=== PATIENT | female | born 1990 | race Asian ===

== ENCOUNTER 2024-05-02 17:42 | Inpatient (IN) ==
[2024-05-02] MEDS: KETOROLAC TROMETHAMINE 15 MG/ML VIAL IV ONE (18:42)
[2024-05-02] MEDS: SODIUM CHLORIDE 0.9% 1,000 ML IV ONE ×2 (18:43→21:47)
[2024-05-02 19:00] LABS: Hematocrit (blood only) 30.9 % (37.0-47.0); Hemoglobin 10.4 g/dl (12.0-16.0); Immature Granulocytes % (auto) 0.8 %; Lymphocytes % (auto) 9.3 %; Mean Corpuscular Hemoglobin 28.1 pg (25.0-34.0); Mean Corpuscular Hgb Conc 33.7 g/dL (32.0-36.0); Mean Corpuscular Volume 83.5 fL (80.0-100.0); Mean Platelet Volume 11.5 fL (9.4-12.4); Monocytes # (auto) 0.52 K/uL (0.11-0.59); Monocytes % (auto) 4.4 %; Neutrophils # (auto) 10.06 K/uL (1.40-6.50); Neutrophils % (auto) 85.5 %; Platelet Count 154 K/uL (130-400); RDW Coefficient of Variation 13.5 % (11.5-14.5); RDW Standard Deviation 41.1 fL (36.4-46.3); White Blood Count 11.78 K/ul (4.8-10.8)
--- NOTE | 2024-05-02 19:02 | Emergency Department Note ---
Impression & Plan Sepsis, Acute UTI (urinary tract infection), Leukocytosis, Elevated serum creatinine, Elevated procalcitonin, Non-ST elevation [facility] (NSTEMI) ED Provider Note HISTORY OF PRESENT ILLNESS: Patient is a 34-year-old female presenting with fevers. Patient reports she has had a fever from 103-105F for the last 3 days. States that she has had diffuse bodyaches. Reports that today she has been laid up in bed secondary to her body aches and fatigue. Reports that earlier today "my head felt heavy." States she was finally able to get up and eat something today in the late afternoon but is still been feeling generally unwell. States she has had a loss of appetite in the last 3 days. Denies any recent sick contact exposures. Denies any recent travel. Denies any DVT or PE history. Denies any chest pain or shortness of breath. She denies any current headache or changes in vision. Denies any rashes. Up-to-date on all vaccines. Denies any dysuria or hematuria. ROS: as above PHYSICAL EXAM: Constitutional: Patient appears in no acute distress. HENT: Head: Normocephalic and atraumatic. Eyes: EOMI, PERRL Mouth/Throat: Mucous membranes moist. Neck: Trachea midline. Neck supple. Cardiovascular: Tachycardic with regular rhythm. No murmurs, rubs or gallops. Intact distal pulses. Pulmonary/Chest: No respiratory distress. Breath sounds clear and equal bilaterally. No wheezes or rales. Abdominal: Abdomen soft, no tenderness, rebound or guarding. Musculoskeletal: No edema, tenderness or deformity noted. Skin: Warm and dry. No rash, erythema, pallor or cyanosis Psychiatric: Appropriate mood and affect for situation. Neurological: Alert and keenly responsive. CN II-XII grossly intact, moving all extremities equally and fully. MDM: - Vitals signs showed tachycardia and fever - History obtained via patient. History as above. - Chronic conditions affecting care: none - Differential diagnoses include, but are not limited to: UTI; pneumonia; viral syndrome; Lyme disease; dehydration; bacteremia - Order placed for continuous cardiac monitoring. At this time, monitor showed rate of 80 bpm with normal sinus rhythm, per my interpretation. - External medical records reviewed. Allergy visit note dated 09/20/2022 was reviewed. Patient was seen in their clinic for persistent hives. - EKG interpreted by myself showed normal sinus rhythm. Rate 100 bpm. QT 330. No acute ischemic changes. - Laboratory workup interpreted by myself showed leukocytosis (WBC 11.78) with neutrophilic predominance; hyponatremia (Na 134); elevated creatinine (Cr 1.4 - unknown baseline); elevated procalcitonin (3.00); elevated troponin (29.2) - Repeat troponin WNL - Negative monospot. Negative lyme - Viral respiratory panel negative - CXR negative for pneumonia, per my interpretation - Blood culture obtained - UA showed evidence of infection. Given 2g IV rocephin - Patient became transiently hypotensive in ER. Her blood pressure did improve after fluid resuscitation. Based on patient's fever, elevated heart rate, tachypnea and source of infection of her UTI, she meets sepsis criteria. - NSTEMI likely type II in etiology given patient's sepsis and infection. - Given 2L NS in ER. Patient sepsis fluid volume resuscitation based on ideal body weight is 1772.70 mL. - Discussion was had with piano case and bench assembler about patient's case and need for admission - Hospitalist, Dr. Valenzuela, consulted for admission. Requested CT abdomen/pelvis be obtained, to rule out potential pyelonephritis or ureteral stone. - [facility]. I have personally spent 36 minutes of critical care time in the direct management of this patient. This includes bedside care, interpretation of diagnostic studies, and testing, discussion with consultants, patient, and family members, and other required patient management activities. This 36 minutes is in excess of all separately billable procedures. ASSESSMENT AND PLAN: Diagnosis: Sepsis; acute UTI; leukocytosis; elevated serum creatinine; elevated procalcitonin; NSTEMI Plan: admit Past Med/Surg History Problem List (Updated 05/02/24 @ 22:36 by Alivia Head MD) Non-ST elevation [facility] (NSTEMI) (Acute) Elevated procalcitonin (Acute) Elevated serum creatinine (Acute) Leukocytosis (Acute) Acute UTI (urinary tract infection) (Acute) Sepsis (Acute) Angio-edema Urticaria Medical History History of ectopic Mild anemia Surgical History History of gynecologic surgery Social History Smoking Status: Never smoker Preferred Language: Cymraes marital status: Single current occupational status: student Feels Safe at Home: Yes Allergies Allergies Allergy/AdvReac Type Severity Reaction Status Date / Time No Known Drug Allergies Allergy Verified 09/20/22 13:25 Home Meds Home Medications Medication Instructions Recorded Confirmed acetaminophen 500 mg tablet 1,000 mg PO Q6H PRN temp 05/02/24 05/02/24 (Tylenol Extra Strength) Results & Data (ED) Vital Signs Vital Signs - 24 hr 05/02/24 18:02 05/02/24 18:28 05/02/24 19:35 Temperature 39.1 C H 38.4 C H 36.7 C Temperature Source Oral Oral Oral Pulse Rate 116 H Pulse Rate [Finger] 105 H Respiratory Rate 18 22 Respiratory Effort / Characteristics Non-Labored Spontaneous Respiratory Depth Normal Blood Pressure 105/73 Blood Pressure [Left Arm] 112/69 Blood Pressure Mean 83 Blood Pressure Mean [Left Arm] 83 Blood Pressure Position [Left Arm] Pulse Oximetry 98 97 Oxygen Delivery Method Room Air Room Air Sepsis Recent Fever Within 48 Hours Yes Sepsis New/Unexplained Change in Mental Status No Sepsis Action Taken by Nursing No Action Required 05/02/24 20:28 05/02/24 21:22 Temperature 36.8 C Temperature Source Oral Pulse Rate Pulse Rate [Finger] 82 80 Respiratory Rate 16 16 Respiratory Effort / Characteristics Respiratory Depth Blood Pressure Blood Pressure [Left Arm] 85/57 L 97/43 L Blood Pressure Mean Blood Pressure Mean [Left Arm] 66 61 Blood Pressure Position [Left Arm] Sitting Sitting Pulse Oximetry 99 99 Oxygen Delivery Method Room Air Sepsis Recent Fever Within 48 Hours Sepsis New/Unexplained Change in Mental Status Sepsis Action Taken by Nursing Laboratory Data 05/02/24 18:11 05/02/24 19:43 Lab Results 05/02/24 05/02/24 05/02/24 Range/Units 18:08 18:11 19:43 WBC 11.78 H (4.8-10.8) K/ul RBC 3.70 L (4.20-5.40) M/uL Hgb 10.4 L (12.0-16.0) g/dl Hct 30.9 L (37.0-47.0) % MCV 83.5 (80.0-100.0) fL MCH 28.1 (25.0-34.0) pg MCHC 33.7 (32.0-36.0) g/dL RDW Std Deviation 41.1 (36.4-46.3) fL RDW Coeff of Derek 13.5 (11.5-14.5) % Plt Count 154 (130-400) K/uL MPV 11.5 (9.4-12.4) fL Immature Gran % (Auto) 0.8 % Neut % (Auto) 85.5 % Lymph % (Auto) 9.3 % Wilkin % (Auto) 4.4 % Eos % (Auto) 0.0 % Baso % (Auto) 0.0 % Neut # (Auto) 10.06 H (1.40-6.50) K/uL Lymph # (Auto) 1.10 L (1.20-3.40) K/uL Wilkin # (Auto) 0.52 (0.11-0.59) K/uL Eos # (Auto) 0.00 (0.00-0.50) K/uL Baso # (Auto) 0.00 (0.00-0.20) K/uL Immature Gran # (Auto) 0.10 (0.01-0.20) K/uL Sodium TNP 134 L Potassium TNP 3.5 Chloride 102 (98-107) mmol/L Carbon Dioxide 20 L (21-32) mmol/L Anion Gap TNP BUN 19 (6-23) mg/dl Creatinine 1.41 H (0.6-1.2) mg/dl Est Cr Clr Drug Dosing 59.2 ml/min Est GFR ( Amer) 57.0 ml/min Est GFR (Non-Af Amer) 49.2 ml/min BUN/Creatinine Ratio 13.5 (10-20) Glucose 188 H (70-99(Fasting)) mg/dl Calcium 7.9 L (8.6-10.3) mg/dl Magnesium TNP 1.7 Total Bilirubin 0.8 (0.2-1.0) mg/dl AST TNP 15 ALT 26 (7-52) U/L Alkaline Phosphatase TNP 82 Troponin I High Sens 29.2 H (0-14) pg/ml Total Protein 7.0 (6.0-8.3) gm/dl Albumin TNP 2.9 L Globulin TNP Albumin/Globulin Ratio TNP Procalcitonin 3.00 H (0-0.5) ng/ml HCG, Qual Negative (Negative) Urine Color Urine Appearance (Clear) Urine pH (4.5-7.5) Ur Specific [place] (1.000-1.030) Urine Protein (Negative) Urine Glucose (UA) (Negative) Urine Ketones (Negative) Urine Blood (Negative) Urine Nitrite (Negative) Urine Bilirubin (Negative) Urine Urobilinogen (Negative) Ur Leukocyte Esterase (Negative) Urine WBC (Auto) (0-5) /hpf Urine RBC (Auto) (0-2) /hpf U Hyaline Cast (Auto) (0-2) /lpf U Epithel Cells (Auto) (0-2) /hpf Urine Bacteria (Auto) (None Seen) Adenovirus (PCR) Not Detected (NotDetected) B. pertussis DNA (PCR) Not Detected (NotDetected) B.parapertussis DNA PCR Not Detected (NotDetected) Lyme Disease Screen Negative (Negative) C. pneumoniae DNA (PCR) Not Detected (NotDetected) Coronavirus OC43 (PCR) Not Detected (NotDetected) Coronavirus HKU1 (PCR) Not Detected (NotDetected) Coronavirus 229E (PCR) Not Detected (NotDetected) SARS-CoV-2 (PCR) Not Detected (NotDetected) Coronavirus NL63 (PCR) Not Detected (NotDetected) Monoscreen Negative (Negative) Human Metapneumovir PCR Not Detected (NotDetected) Influenza Type A (PCR) Not Detected (NotDetected) Influenza Type B (PCR) Not Detected (NotDetected) M. pneumoniae (PCR) Not Detected (NotDetected) Parainfluenza 1 (PCR) Not Detected (NotDetected) Parainfluenza 2 (PCR) Not Detected (NotDetected) Parainfluenza 3 (PCR) Not Detected (NotDetected) Parainfluenza 4 (PCR) Not Detected (NotDetected) RSV (PCR) Not Detected (NotDetected) Entero/Rhino (PCR) Not Detected (NotDetected) 05/02/24 05/02/24 Range/Units 21:21 Unknown WBC (4.8-10.8) K/ul RBC (4.20-5.40) M/uL Hgb (12.0-16.0) g/dl Hct (37.0-47.0) % MCV (80.0-100.0) fL MCH (25.0-34.0) pg MCHC (32.0-36.0) g/dL RDW Std Deviation (36.4-46.3) fL RDW Coeff of Derek (11.5-14.5) % Plt Count (130-400) K/uL MPV (9.4-12.4) fL Immature Gran % (Auto) % Neut % (Auto) % Lymph % (Auto) % Wilkin % (Auto) % Eos % (Auto) % Baso % (Auto) % Neut # (Auto) (1.40-6.50) K/uL Lymph # (Auto) (1.20-3.40) K/uL Wilkin # (Auto) (0.11-0.59) K/uL Eos # (Auto) (0.00-0.50) K/uL Baso # (Auto) (0.00-0.20) K/uL Immature Gran # (Auto) (0.01-0.20) K/uL Sodium Potassium Chloride (98-107) mmol/L Carbon Dioxide (21-32) mmol/L Anion Gap BUN (6-23) mg/dl Creatinine (0.6-1.2) mg/dl Est Cr Clr Drug Dosing ml/min Est GFR ( Amer) ml/min Est GFR (Non-Af Amer) ml/min BUN/Creatinine Ratio (10-20) Glucose (70-99(Fasting)) mg/dl Calcium (8.6-10.3) mg/dl Magnesium Total Bilirubin (0.2-1.0) mg/dl AST ALT (7-52) U/L Alkaline Phosphatase Troponin I High Sens 5.8 D (0-14) pg/ml Total Protein (6.0-8.3) gm/dl Albumin Globulin Albumin/Globulin Ratio Procalcitonin (0-0.5) ng/ml HCG, Qual (Negative) Urine Color Yellow Urine Appearance Cloudy A (Clear) Urine pH 5.5 (4.5-7.5) Ur Specific [place] 1.009 (1.000-1.030) Urine Protein 2+ H (Negative) Urine Glucose (UA) Negative (Negative) Urine Ketones Negative (Negative) Urine Blood 2+ H (Negative) Urine Nitrite Negative (Negative) Urine Bilirubin Negative (Negative) Urine Urobilinogen Negative (Negative) Ur Leukocyte Esterase 3+ H (Negative) Urine WBC (Auto) >50 H (0-5) /hpf Urine RBC (Auto) 3-5 H (0-2) /hpf U Hyaline Cast (Auto) 0-2 (0-2) /lpf U Epithel Cells (Auto) 3-5 H (0-2) /hpf Urine Bacteria (Auto) None Seen (None Seen) Adenovirus (PCR) (NotDetected) B. pertussis DNA (PCR) (NotDetected) B.parapertussis DNA PCR (NotDetected) Lyme Disease Screen (Negative) C. pneumoniae DNA (PCR) (NotDetected) Coronavirus OC43 (PCR) (NotDetected) Coronavirus HKU1 (PCR) (NotDetected) Coronavirus 229E (PCR) (NotDetected) SARS-CoV-2 (PCR) (NotDetected) Coronavirus NL63 (PCR) (NotDetected) Monoscreen (Negative) Human Metapneumovir PCR (NotDetected) Influenza Type A (PCR) (NotDetected) Influenza Type B (PCR) (NotDetected) M. pneumoniae (PCR) (NotDetected) Parainfluenza 1 (PCR) (NotDetected) Parainfluenza 2 (PCR) (NotDetected) Parainfluenza 3 (PCR) (NotDetected) Parainfluenza 4 (PCR) (NotDetected) RSV (PCR) (NotDetected) Entero/Rhino (PCR) (NotDetected) Administered Medications Discontinued Medications Sodium Chloride (Nss) 1,000 mls @ 999 mls/hr IV .Q1H1M ONE Stop: 05/02/24 19:34 Last Infusion: 05/02/24 19:45 Dose: Infused Documented By: Admin: 05/02/24 18:43 Dose: 999 mls/hr Documented By: EJV Ceftriaxone Sodium (Rocephin) 2,000 mg in 50 mls @ 100 mls/hr IV NOW STA Stop: 05/02/24 21:08 Last Infusion: 05/02/24 21:37 Dose: Infused Documented By: Admin: 05/02/24 21:03 Dose: 100 mls/hr Documented By: JONNATHAN Sodium Chloride (Nss) 1,000 mls @ 999 mls/hr IV .Q1H1M ONE Stop: 05/02/24 22:31 Last Admin: 05/02/24 21:47 Dose: 999 mls/hr Documented By: JONNATHAN Ketorolac Tromethamine (Ketorolac Tromethamine 15 Mg/Ml Vial) 15 mg IV NOW ONE Stop: 05/02/24 18:35 Last Admin: 05/02/24 18:42 Dose: 15 mg Documented By: LAMIN Imaging Data Radiologist's Impression: Chest X-Ray 05/02/24 18:09 XR chest 1V portable HISTORY: 34 years-old Female Fever COMPARISON: None TECHNIQUE: AP view of the chest FINDINGS: Mild gaseous distention of the stomach. Heart is normal in size. No pneumothorax, pleural effusion or airspace consolidation. 8 mm calcified granuloma projects over the left infrahilar lung. Bones appear grossly intact. IMPRESSION: No acute process. ACT 112: Negative or not required by law. The above report was generated using voice recognition software. It may contain grammatical, syntax or spelling errors. Electronically signed by: Michael Carrasco M.D. 05/02/2024 7:12 PM Discharge Plan Visit Data Chief Complaint: Fever Stated Complaint: FEVER, BODY ACHES ED Provider: Alivia Head Discharge Problem: Sepsis, Acute UTI (urinary tract infection), Leukocytosis, Elevated serum creatinine, Elevated procalcitonin, Non-ST elevation [facility] (NSTEMI) Forms Stand Alone Forms: [employer] Prescriptions Prescriptions: No Action acetaminophen [Tylenol Extra Strength] 500 mg Tablet 1,000 mg PO Q6H PRN (Reason: temp) Referrals [facility] [Primary Care Provider] -
[2024-05-02 19:05] LABS: Monotest Negative (Negative); Pregnancy Test, Serum Negative (Negative)
--- NOTE | 2024-05-02 19:14 | XRay Report ---
XR chest 1V portable HISTORY: 34 years-old Female Fever COMPARISON: None TECHNIQUE: AP view of the chest FINDINGS: Mild gaseous distention of the stomach. Heart is normal in size. No pneumothorax, pleural effusion or airspace consolidation. 8 mm calcified granuloma projects over the left infrahilar lung. Bones appea r grossly intact. IMPRESSION: No acute process. ACT 112: Negative or not required by law. The above report was generated using voice recognition software. It may contain grammatical, syntax o r spelling errors. Electronically signed by: Michael Carrasco M.D. 05/02/2024 7:12 PM
[2024-05-02 19:35] LABS: Adenovirus PCR Not Detected (NotDetected); Bordetella parapertussis PCR Not Detected (NotDetected); Bordetella pertussis PCR Not Detected (NotDetected); Chlamydia pneumoniae PCR Not Detected (NotDetected); Coronavirus 229E PCR Not Detected (NotDetected); Coronavirus CoV-2 (COVID19)PCR Not Detected (NotDetected); Coronavirus HKU1 PCR Not Detected (NotDetected); Coronavirus NL63 PCR Not Detected (NotDetected); Coronavirus OC43PCR Not Detected (NotDetected); Human Metapneumovirus PCR Not Detected (NotDetected); Influenza A PCR Not Detected (NotDetected); Influenza B PCR Not Detected (NotDetected); Mycoplasma pneumoniae PCR Not Detected (NotDetected); Parainfluenza Virus 1 PCR Not Detected (NotDetected); Parainfluenza Virus 2 PCR Not Detected (NotDetected); Parainfluenza Virus 3 PCR Not Detected (NotDetected); Parainfluenza Virus 4 PCR Not Detected (NotDetected); Respiratory Syncytial VirusPCR Not Detected (NotDetected); Rhinovirus/Enterovirus PCR Not Detected (NotDetected)
[2024-05-02 19:37] LABS: Alanine Aminotransferase 26 U/L (7-52); BUN Creatinine Ratio 13.5 (10-20); Bilirubin,Total 0.8 mg/dl (0.2-1.0); Blood Urea Nitrogen 19 mg/dl (6-23); Calcium 7.9 mg/dl (8.6-10.3); Carbon Dioxide 20 mmol/L (21-32); Chloride 102 mmol/L (98-107); Creatinine Clr Calc Pharmacy 59.2 ml/min; Est GFR (Non-African American) 49.2 ml/min; Glucose 188 mg/dl (70-99(Fasting)); Troponin I High Sensitivity 29.2 pg/ml (0-14)
[2024-05-02 20:10] LABS: Appearance Urine Cloudy (Clear); Bacteria Urine Automated None Seen (None Seen); Bilirubin Urine Negative (Negative); Blood Urine 2+ (Negative); Cast Urine Automated 0-2 /lpf (0-2); Color Urine Yellow; Glucose Urine UA Negative (Negative); Ketones Urine Negative (Negative); Leukocyte Esterase Urine 3+ (Negative); Nitrite Urine Negative (Negative); Protein Urine 2+ (Negative); Specific Gravity Urine 1.009 (1.000-1.030); Urobilinogen Urine Negative (Negative); WBC Urine Automated >50 /hpf (0-5); pH Urine 5.5 (4.5-7.5)
[2024-05-02 20:18] LABS: Albumin Level 2.9 gm/dl (3.4-5.0); Magnesium 1.7 mg/dl (1.7-2.4); Potassium 3.5 mmol/L (3.5-5.1)
[2024-05-02] MEDS: cefTRIAXone SODIUM 2,000 MG/50 ML BAG IV STA (21:03)
[2024-05-02] MEDS ORDERED: ACETAMINOPHEN 325 MG TAB PO PRN (22:09)
--- NOTE | 2024-05-02 22:21 | History & Physical Report ---
Date of Service May 02, 2024 Assessment & Plan (1) Sepsis: Plan: - +SIRS with tachycardiac and fever. Prolcal= 3 - source likely urine, although no bacteria on UA and lack of urinary symptoms. Respiratory biofire negative, CXR negative, mono negative, tick borne panel negative - CT A&P is pending - plan to continue ceftriaxone for a presumptive UTI/pyelonephritics - S/p 2L IVF in ED which would complete sepsis bolus-> continue LR@150ml/hr for an additional 3L - urine and blood cultures pending (2) Acute UTI (urinary tract infection): Plan: Plan as per above (3) Elevated serum creatinine: Plan: - Creatine 1.41, unknown baseline - likely prerenal DEVANG in the setting of hypovolemia - fluids as per above - trend creatinine (4) Non-ST elevation [place] (NSTEMI): Plan: - Initial troponin= 29, downtrended to 5 with fluids - denies chest pain/dyspnea - EKG without ischemic changes - likely demand ischemia in the setting of acute illness- peaked Admission and Anticipated Discharge Date Admission Date: Diet: Regular VTE Prophylaxis Low risk ambulation Code: Full Dispo: Tele History of Present Illness Primary Care Provider: [facility] 34 year old female without any significant past medical history presenting with 3 days of fever and body aches. States that body aches were worse today, which prompted her to come in. Denies URI symptoms- cough, congestion. Denies GI symptoms- diarrhea, nausea/vomiting. Denies urinary symptoms- dysuria, hematuria, flank pain. No new rashes/tick bites. No recent travel. ED Course Significants for-> Febrile and tachycardic-> +SIRs. S/p 2L IVF. Creatine= 1.41 with unknown baseline. Mild elevation in troponin 29-> 5.8. Procal= 3. CXR negative. Urine culture +blood, LE- no bacteria. Received 2g ceftriaxone for sepsis with presumed urinary source. Allergies Allergy/AdvReac Type Severity Reaction Status Date / Time No Known Drug Allergies Allergy Verified 09/20/22 13:25 Home Medications Medication Instructions Recorded Confirmed Type acetaminophen 500 mg tablet 1,000 mg PO Q6H PRN temp 05/02/24 05/02/24 History (Tylenol Extra Strength) Past Med/Surg History Problem List (Updated 05/02/24 @ 23:19 by Background Linneaon) Non-ST elevation [place] (NSTEMI) (Acute) Elevated procalcitonin (Acute) Elevated serum creatinine (Acute) Leukocytosis (Acute) Acute UTI (urinary tract infection) (Acute) Sepsis (Acute) Angio-edema Urticaria Medical History History of ectopic Mild anemia Surgical History History of gynecologic surgery Social History Smoking Status: Never smoker Preferred Language: Macedonian marital status: Single current occupational status: student Feels Safe at Home: Yes Review of Systems Review of Systems: As per above Physical Exam Physical Exam: Constitutional: well-appearing, no acute distress HEENT: NCAT, no conjunctival injection CV: regular rhythm, no murmur appreciated, extremities well-perfused Resp: CTABL, no wheezes/rales/rhonchi appreciated, no increased work of breathing GI: soft, nondistended, nontender, BS normoactive MSK: no gross deformities appreciated Skin: warm, dry, no rash appreciated Neuro: alert, oriented, no focal neurologic deficit appreciated Results & Data Results & Data Vital Signs (Past 12 Hours) Vital Signs Temp Pulse Pulse Resp BP BP Pulse Ox 05/02/24 21:22 36.8 C 80 16 97/43 L 99 05/02/24 20:28 82 16 85/57 L 99 05/02/24 19:35 36.7 C 05/02/24 18:28 38.4 C H 105 H 22 112/69 97 05/02/24 18:02 39.1 C H 116 H 18 105/73 98 O2 Del Method 05/02/24 21:22 Room Air 05/02/24 20:28 05/02/24 19:35 05/02/24 18:28 Room Air 05/02/24 18:02 Room Air Supervising Physician Co-Signing Physician Notes Attending addendum: I have physically seen this patient, have supervised the medical residents activities, and agree with the H&P unless as otherwise noted. Assessment and Plan: Sepsis secondary to acute urinary tract infection- Follow urine culture sensitivity Ceftriaxone IV as noted Procalcitonin 3.00 Neutrophilic leukocytosis, with total WBC 11.78 Increased creatinine suggest acute kidney injury BioFire testing negative CT scan abdomen and pelvis pending Status post 2 L normal saline bolus from the ED Placed on LR at 100 mL/h for total of 3 L fluid Renal insufficiency- Creatinine 1.41, with unknown baseline IV fluids as noted above, and recheck laboratories in the a.m. Elevated troponin- Troponin 29.2, with follow-up 5.8 after IV fluids Likely type II, supply/demand mismatch versus pericarditis/uremia Repeat laboratories in a.m. The patient will be admitted to telemetry for serial cardiac enzymes, serial EKG's, cardiac rhythm monitoring and a 2-D echocardiogram with Dopplers. Resident Activity Tracking Resident Involvement: Resident Care Provided Care Provided: Adult Hospital Medicine
[2024-05-02] MEDS: OPTIRAY 320 100ml IV ONE (23:12)
[2024-05-02] MEDS: LACTATED RINGER'S 1,000 ML IV SCH (23:52)
--- NOTE | 2024-05-03 00:32 | Billing Data ---
Date of Service May 03, 2024 Coding Level of Care Code 89112 INT INP/OBS CARE
--- NOTE | 2024-05-03 00:49 | CT Scan Report ---
Exam(s): CT ABDOMEN + PELVIS With Contrast IV Amt: 90 cc opti 320 EXAM: CT Abdomen and Pelvis With Intravenous Contrast CLINICAL HISTORY: Reason for exam: sepsis. TECHNIQUE: Axial computed tomography images of the abdomen and pelvis with intravenous contrast. CTDI is 15.22 mGy and DLP is 849.25 mGy-cm. Automated exposure control was utilized for the study. A dose lowering technique was utilized adhering to the principles of ALARA. CONTRAST: Patient received 90 cc opti 320 of IV contrast COMPARISON: No relevant prior studies available. FINDINGS: Lung bases: No consolidation. ABDOMEN: Liver: The liver is enlarged. Gallbladder and bile ducts: No calcified stones. No ductal dilation. Pancreas: No mass. No ductal dilation. Spleen: The spleen is mildly enlarged.. Adrenals: . No mass. Kidneys and ureters: No solid mass. No renal calculi are noted. No evidence of hydronephrosis. There is left perinephric stranding. There is delayed or diminished function in the left kidney. There is a 2 cm lucency in the left kidney.. There are inflammatory changes surrounding the left ureter. Stomach and bowel: Unremarkable. No obstruction. No mucosal thickening. PELVIS: Appendix: Unremarkable CT scan appearance noted the appendix.. Bladder: No calculi are noted within the bladder. Reproductive: Unremarkable as visualized. ABDOMEN and PELVIS: Intraperitoneal space: No free air. No significant fluid collection. Bones/joints: No acute fracture. No dislocation. Soft tissues: Unremarkable. Vasculature: No abdominal aortic aneurysm. Lymph nodes: . No enlarged lymph nodes. IMPRESSION: There is left perinephric stranding. There is delayed or diminished function in the left kidney. There are inflammatory changes surrounding the left ureter. This may represent pyelonephritis/urethritis. There is a 2 cm lucency in the left kidney.. This may represent a cyst. An early abscess cannot be excluded. Hepatosplenomegaly. Electronically signed by: Farzad Mast MD 05/03/24 00:48 AM
[2024-05-03] MEDS: ACETAMINOPHEN 325 MG TAB PO PRN (03:17)
[2024-05-03 07:41] LABS: Basophils # (auto) 0.01 K/uL (0.00-0.20); Basophils % (auto) 0.1 %; Hematocrit (blood only) 30.4 % (37.0-47.0); Hemoglobin 9.9 g/dl (12.0-16.0); Immature Granulocytes # (auto) 0.05 K/uL (0.01-0.20); Immature Granulocytes % (auto) 0.6 %; Lymphocytes # (auto) 1.06 K/uL (1.20-3.40); Lymphocytes % (auto) 11.7 %; Mean Corpuscular Hemoglobin 27.7 pg (25.0-34.0); Mean Corpuscular Hgb Conc 32.6 g/dL (32.0-36.0); Mean Corpuscular Volume 84.9 fL (80.0-100.0); Mean Platelet Volume 11.3 fL (9.4-12.4); Monocytes # (auto) 0.62 K/uL (0.11-0.59); Monocytes % (auto) 6.9 %; Neutrophils # (auto) 7.29 K/uL (1.40-6.50); Neutrophils % (auto) 80.7 %; Platelet Count 122 K/uL (130-400); RDW Coefficient of Variation 13.7 % (11.5-14.5); RDW Standard Deviation 42.5 fL (36.4-46.3); Red Blood Count 3.58 M/uL (4.20-5.40); White Blood Count 9.03 K/ul (4.8-10.8)
[2024-05-03] MEDS: ONDANSETRON INJ 2 MG/ML 2 ML VIAL IV PRN (10:03)
[2024-05-03 10:14] LABS: Albumin Level 2.8 gm/dl (3.4-5.0); Bilirubin,Total 0.9 mg/dl (0.2-1.0); Calcium 7.5 mg/dl (8.6-10.3); Magnesium 1.8 mg/dl (1.7-2.4); Potassium 3.7 mmol/L (3.5-5.1)
[2024-05-03 10:20] LABS: Albumin Globulin Ratio 0.8 (0.9-2); BUN Creatinine Ratio 11.9 (10-20); Creatinine Clr Calc Pharmacy 75.5 ml/min; Est GFR (African American) 77.8 ml/min; Est GFR (Non-African American) 67.1 ml/min; Globulin 3.3 gm/dl (2.5-4.0); Total Protein 6.1 gm/dl (6.0-8.3)
--- NOTE | 2024-05-03 12:45 | Billing Data ---
Date of Service May 03, 2024 Coding Level of Care Code 51164 SUB INP/OBS CARE
--- NOTE | 2024-05-03 12:45 | Communication Note ---
Date of Service: May 03, 2024 I personally examined the patient and verified all lópez points of history and exam, discussed case, and agree with decision making with Mary DUNN and Dr Walton feeling better overall. still hot/sweaty at times. vitals noted fatigued but nad heent nc at mmm breathing unlabored no accessory muscles good effort skin no rashes no pallor or icterus pyelonephritis w sepsis present on admission (to clarify - i suspect low end BP and DEVANG were due to dehydration rather than severe sepsis/septic shock) - improving. rocephin. supportive care. time. otherwise as per MS2 and R3 notes
--- NOTE | 2024-05-03 12:47 | Billing Data ---
Date of Service May 03, 2024 Coding Level of Care Code 46857 SUB INP/OBS CARE
--- NOTE | 2024-05-03 12:47 | Hospitalist Progress Note ---
Date of Service May 03, 2024 Assessment & Plan (1) Sepsis: Plan: - Patient has symptoms of nausea and Zofran was given - Patient had symptoms of back pain on left side one day before coming to the ER - No longer +SIRS due to no tachycardia. Still having fever - Respiratory biofire negative, CXR negative, mono negative, tick borne panel negative - CT showed left perinephric stranding, delayed and diminished function of left kidney, inflammatory changes around left ureter - Urine culture came back with gram negative bacilli - Blood cultures and susceptibility are pending - Plan to continue ceftriaxone - S/p 2L IVF in ED which would complete sepsis bolus-> continue LR@150ml/hr for an additional 3L (2) Pyelonephritis: Plan: Plan as per above (3) Elevated serum creatinine: Plan: - Creatinine 1.41 upon admission, unknown baseline - Recent Creatinine 1.09 - Likely prerenal DEVANG in the setting of hypovolemia - Fluids as per above (4) Elevated troponin: Plan: - Initial troponin - 29, downtrended to 5 with fluids - denies chest pain/dyspnea - EKG without ischemic changes - Hold ECG - Originally classified as NSTEMI, likely demand ischemia in the setting of acute illness- peaked - Will follow if patient becomes symptomatic Plan Diet: Regular VTE Prophylaxis Low risk ambulation Code: Full Dispo: Tele Admission and Anticipated Discharge Date Admission Date: May 02, 2024 Supervising Physician Co-Signing Physician Notes to clarify - troponin appears to reflect very very mild demand ischemia in the context of sepsis and dehydration, not nstemi Subjective Today she mentioned she was feeling a lot better. She did go to the bathroom today and mentioned no symptoms of burning, changes in urinary frequency or urgency. When asked about prior to the ER, she said she had taken Tylenol the first day for her fever but then felt aches in her joints. On the third day, she started having back pain on her left side when she decided to come in. She reports no chest pain, palpitations, abdominal pain, flank pain, or N/V. Review of Systems Review of Systems: As per HPI Physical Exam Constitutional: WD/WN, vitals as above Cardiovascular: RRR, no murmur, no edema Gastrointestinal (Abdomen): normal bowel sounds, soft, nontender, no hepatosplenomegaly Results & Data Results & Data Vital Signs (Past 12 Hours) Vital Signs Temp Pulse Pulse Resp BP Pulse Ox O2 Del Method 05/03/24 07:55 36.9 C 81 16 93/60 L 97 Room Air 05/03/24 07:12 92 H 05/03/24 03:12 39.4 C H 106 H 16 94/59 L 97 Room Air 05/03/24 00:14 36.7 C 78 20 100/67 100 Room Air 05/03/24 00:00 88
--- NOTE | 2024-05-03 13:22 | XCELERA ---
[id number] \\[id number]
[2024-05-03] MEDS: KETOROLAC TROMETHAMINE 15 MG/ML VIAL IV ONE (17:58)
[2024-05-03] MEDS ORDERED: ACETAMINOPHEN 1,000 MG/100 ML VIAL IV PRN (18:21)
[2024-05-03] MEDS: cefTRIAXone SODIUM 2,000 MG/50 ML BAG IV SCH (19:51)
--- NOTE | 2024-05-03 22:32 | Electrocardiogram Report ---
Test Reason : Blood Pressure : */* mmHG Vent. Rate : 100 BPM Atrial Rate : 100 BPM P-R Int : 152 ms QRS Dur : 78 ms QT Int : 330 ms P-R-T Axes : 48 8 23 degrees QTcB Int : 425 ms Normal sinus rhythm Nonspecific T wave abnormality No previous ECGs available Confirmed by Tod Palomares ([id number]) on 05/03/2024 10:32:20 PM Referred By: REFERRED SELF Confirmed By: Tod Palomares
[2024-05-04] MEDS: KETOROLAC TROMETHAMINE 15 MG/ML VIAL IV PRN (00:16)
[2024-05-04 08:07] VITALS: RESP 18
[2024-05-04 08:36] LABS: Hematocrit (blood only) 29.2 % (37.0-47.0); Hemoglobin 9.4 g/dl (12.0-16.0); Mean Corpuscular Hemoglobin 27.4 pg (25.0-34.0); Mean Corpuscular Hgb Conc 32.2 g/dL (32.0-36.0); Mean Corpuscular Volume 85.1 fL (80.0-100.0); Mean Platelet Volume 10.8 fL (9.4-12.4); Platelet Count 117 K/uL (130-400); RDW Coefficient of Variation 14.2 % (11.5-14.5); RDW Standard Deviation 44.2 fL (36.4-46.3); Red Blood Count 3.43 M/uL (4.20-5.40); White Blood Count 6.14 K/ul (4.8-10.8)
[2024-05-04 09:40] LABS: BUN Creatinine Ratio 9.7 (10-20); Calcium 7.6 mg/dl (8.6-10.3); Creatinine Clr Calc Pharmacy 79.9 ml/min; Est GFR (African American) 83.3 ml/min; Est GFR (Non-African American) 71.9 ml/min; Potassium 3.7 mmol/L (3.5-5.1)
[2024-05-04 11:11] VITALS: BP 97/64; PULSE 94; TEMP 99; O2SAT 98
[2024-05-04] MEDS: cefTRIAXone SODIUM 2,000 MG/50 ML BAG IV ONE (14:21)
--- NOTE | 2024-05-04 15:54 | Discharge Summary ---
Date of Service May 04, 2024 Admission HPI Per Admitting Provider 34 year old female without any significant past medical history presenting with 3 days of fever and body aches. States that body aches were worse today, which prompted her to come in. Denies URI symptoms- cough, congestion. Denies GI symptoms- diarrhea, nausea/vomiting. Denies urinary symptoms- dysuria, hematuria, flank pain. No new rashes/tick bites. No recent travel. ED Course Significants for-> Febrile and tachycardic-> +SIRs. S/p 2L IVF. Creatine= 1.41 with unknown baseline which reduced to 1.03 next day. Mild elevation in troponin 29-> 5.8. Procal= 3. CXR negative. Urine culture +blood, LE- no bacteria. Received 2g ceftriaxone for sepsis due to pyelonephritis. Principal Diagnosis Pyelonephritis Discharge Exam Constitutional WD/WN, vitals as above Cardiovascular RRR, no murmur, no edema Gastrointestinal (Abdomen) normal bowel sounds, soft, nontender, no hepatosplenomegaly Discharge Data Allergies Allergy/AdvReac Type Severity Reaction Status Date / Time No Known Drug Allergies Allergy Verified 09/20/22 13:25 Consultations 05/02/24 22:36 ED Decision to Admit Stat Ordered Studies 05/02/24 21:54 CT Abd and Pelvis [CT abd pelvis IV con only] Stat Hospital Course (1) Pyelonephritis: - Patient had symptoms of back pain on left side one day before coming to the ER - Respiratory biofire negative, CXR negative, mono negative, tick borne panel negative - CT showed left perinephric stranding, delayed and diminished function of left kidney, inflammatory changes around left ureter - Leukocytosis - Urine culture came back with gram negative bacilli -> E. Coli - Blood cultures negative for 24 hours - Ceftriaxone given inpatient - 14 day course of antibiotics total, 11 days of antibiotics at home - Cefpodoxime 400mg BID - start taking medication 05/05 - Recommended follow up with PCP within a week (2) Sepsis: - No longer +SIRS due to no tachycardia and no fever - Resolved (3) Elevated serum creatinine: - Creatinine 1.41 upon admission, unknown baseline - Recent Creatinine 1.03 - Likely prerenal DEVANG in the setting of hypovolemia - Resolved with fluids (4) Elevated troponin: - Initial troponin - 29, downtrended to 5 with fluids - denies chest pain/dyspnea - EKG without ischemic changes - likely demand ischemia in the setting of acute illness- peaked - Resolved with fluids Plan Diet: Regular VTE Prophylaxis Low risk ambulation Code: Full Dispo: Tele Total Time Total Time Spent Total Time Spent (In Minutes): <30 Discharge Plan Discharge Items Patient Disposition: Home - Self-Care Reason For Visit: SEPSIS Discharge Diagnosis: Pyelonephritis (kidney infection) Activity: Resume your previous activity Non-emergency contact: Primary Care Provider Call non-emergency contact if: you have any medication questions and your symptoms worsen Follow-up/Referrals: [facility] [Primary Care Provider] - Diet: Regular Addtl Attending Provider Instructions: pyelonephritis (kidney infectionyou ended up in the hospital because of a urinary tract infection that a ascended to your kidney. Unfortunately this is something that will very commonly make people sick enough to be hospitalized. Fortunately you have recovered very quickly. It is quite safe to get you home. As we discussed, the bacteria causing it is E. coli (by far the most common urinary tract infection bacteria we see) and it is a strain of E. coli that is sensitive to all antibiotics tested. - With the infection improving, it is quite safe to get you home - while there is not an exact oral version of the IV antibiotic we have been using (ceftriaxone), there are several oral medications that are extremely similar. We will be sending you home with cefpodoxime as an oral antibiotic. Start it tomorrow (05/05/2024) and we will have you take it twice a day for 11 more days (14 days total treatment IV plus oral) - typically cefpodoxime sits pretty well with peoplebut it can sometimes be a little upsetting on your stomachI would definitely recommend taking it with food - as we discussed, it will probably take the better part of a month for you to get betterthe symptoms that will linger the longest will be your poor appetite (as long as you are getting about 3 L of oral fluid intake I would worry less about how much you are eatingbut definitely staying hydrated), and fatigue (as we discussed with this, it will likely take 3-4 weeks for you to really feel back to your regular level of energy.) - try to eat as much as you can and then get in 1 more bite afterwards - there is no formal restriction to your activity, but assume that if you do too much you will likely "pay for it" the next dayfor you, this will largely be measured by 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 I expect you to probably have to limit hours to a degree for at least the first several days, and likely while you will be able to get back to normal work days fairly quickly, he will definitely need to make sure you are taking plenty of time to rest and getting enough sleep. - As long as you can see improvement in 3-4 days at a time, progress will be slow but steady. If you see that you are clearly not progressing, or if you were to worsen at all, we would definitely want you evaluated. - While it is looking like the fevers have gone away, and it may not happen again, a fever 1 more time tonight would not be surprising or worrisome. Past that, should you continue to spike fevers greater than 38 C, I would probably have someone take a look at you follow-up with [facility] in 1-2 weeks for recheck. Pending Studies at Discharge: No Stand-Alone Forms: My [facility], Smoking Cessation Medications and DC Order Prescriptions: New cefpodoxime 200 mg tablet 200 mg PO BID Qty: 22 0RF Rx Instructions: must administer with a meal/food Continued acetaminophen [Tylenol Extra Strength] 500 mg Tablet 1,000 mg PO Q6H PRN (Reason: temp) Discharge Orders: Discharge Order (Routine); Ordered 05/04/24 Ordered By: Kristopher Rivera Admission Data Admit Date/Time: 05/02/24 23:42 Attending Provider: Kristopher Rivera Admit Provider: Cherie Boucher Primary Care Provider: [facility] Other Providers: Deni Valenzuela Other Interventions: Discharge Summary Assessment (RN) Last Done: 05/04/24 14:55 Supervising Physician Co-Signing Physician Notes I personally examined the patient and verified all lópez points of history and exam, discussed case, and agree with decision making with Mary DUNN feeling better overall. Feels up to going home. Still somewhat poor appetite but able to drink well. vitals noted fatigued but nad heent nc at mmm breathing unlabored no accessory muscles good effort skin no rashes no pallor or icterus pyelonephritis w sepsis present on admission (to clarify - i suspect low end BP and DEVANG were due to dehydration rather than severe sepsis/septic shock) - improving. day 3 of Rocephin today, cultures showed pansensitive E. coli. Finish out course of treatment with cefpodoxime (given severity of illness as well as heterogeneity of kidney on imagingwill treat with 14 days total) to clarifytroponin was almost certainly extremely mild demand ischemia and not NSTEMI otherwise as above
--- NOTE | 2024-05-04 16:31 | Billing Data ---
Date of Service May 04, 2024 Coding Level of Care Code 34920 IN/OBS DISCH 30 MIN/LESS
[2024-05-04] MEDS ORDERED: cefTRIAXone SODIUM 2,000 MG/50 ML BAG IV ONE ×2 (19:30)
== END 2024-05-04 16:02 | disposition home or self-care (01) | DRG 872 ==
LOC: ED 17:42 → SUATTDRO 22:09 → 2N 22:09